=== PATIENT | male | born 1980 | race Caucasian/White ===

== ENCOUNTER 2021-11-10 23:19 | Inpatient (IN) | payer OTHER ==
[~2021-11-10] VITALS: Ht 170.2 cm; Wt 71.4 kg
[2021-11-11] MEDS ORDERED: IOHEXOL 350 MG/ML 100ML IJ ONE (00:13)
[2021-11-11 01:16] LABS: Basophils # (auto) 0.1 10 ^3/uL (0-0.2); Mean Corpuscular Hemoglobin 28.7 pg (28.0-32.0); Monocytes # (auto) 0.2 10 ^3/uL (0-1.3)
[2021-11-11 01:18] LABS: Basophils % (auto) 0.6 % (0.0-2.0); Eosinophils # (auto) 0.2 10 ^3/uL (0-0.8); Eosinophils % (auto) 1.8 % (0.0-7.0); Hematocrit 34.2 % (41.0-53.0); Hemoglobin 11.6 g/dL (13.5-17.5); Lymphocytes % (auto) 23.5 % (10.0-50.0); Mean Corpuscular Hgb Conc. 33.9 g/dL (32.0-36.0); Mean Corpuscular Volume 84.6 fL (80.0-100.0); Monocytes % (auto) 2.6 % (0.0-12.0); Neutrophils # (auto) 6.2 10 ^3/uL (1.6-8.6); Neutrophils % (auto) 71.5 % (37.0-80.0); Red Blood Cells 4.04 10^6/uL (4.5-5.90); Red Cell Distribution Width 14.5 % (11.8-14.3); White Blood Cell 8.6 10^3/uL (4.4-10.8)
[2021-11-11 01:35] LABS: INR 1.34 (0.9-1.15); Partial Thromboplastin Time 28.5 sec (23.6-33.0)
[2021-11-11 01:37] LABS: Albumin 3.4 g/dL (3.4-5.0); BUN/Creatinine Ratio 15.4; Calcium 8.8 mg/dL (8.5-10.1); Magnesium 2.6 mg/dL (1.6-2.6); Potassium 4.6 mmol/L (3.5-5.1)
[2021-11-11 01:40] LABS: Bilirubin, Total 0.4 mg/dL (0.2-1.0); Total Protein 6.7 g/dL (6.4-8.2)
[2021-11-11] MEDS ORDERED: ASPirin 81 mg TAB PO ONE (02:00)
[2021-11-11] MEDS ORDERED: ENOXAPARIN SOD 100 MG/1 ML SYRINGE SC ONE (03:00)
[2021-11-11] MEDS ORDERED: KETOROLAC TROMETH 30 MG/ML 1ML VIAL IM ONE (04:15)
[2021-11-11] MEDS ORDERED: ONDANSETRON HCL 4 MG/2 ML VIAL IV PRN (05:15)
[2021-11-11] MEDS ORDERED: ACETAMINOPHEN 325 MG TAB PO PRN (05:15)
[2021-11-11] MEDS ORDERED: FUROSEMIDE 40 MG/4 ML VIAL IV ONE (05:15)
[2021-11-11] MEDS ORDERED: DOCUSATE SOD 100 MG CAP PO PRN (05:15)
[2021-11-11] MEDS ORDERED: DEXTROSE (50%) 50ML SYRG IV PRN (05:15)
[2021-11-11] MEDS ORDERED: HYDROcodone-ACET 5/325MG TAB PO PRN (05:15)
[2021-11-11 05:52] LABS: Basophils # (auto) 0.1 10 ^3/uL (0-0.2); Basophils % (auto) 0.7 % (0.0-2.0); Eosinophils # (auto) 0.2 10 ^3/uL (0-0.8); Hematocrit 33.2 % (41.0-53.0); Lymphocytes # (auto) 2.4 10 ^3/uL (0.4-5.4); Lymphocytes % (auto) 26.2 % (10.0-50.0); Mean Corpuscular Volume 84.7 fL (80.0-100.0); Monocytes # (auto) 0.2 10 ^3/uL (0-1.3); Monocytes % (auto) 2.3 % (0.0-12.0); Neutrophils # (auto) 6.3 10 ^3/uL (1.6-8.6); Neutrophils % (auto) 68.8 % (37.0-80.0); Red Blood Cells 3.92 10^6/uL (4.5-5.90); Red Cell Distribution Width 14.6 % (11.8-14.3); White Blood Cell 9.1 10^3/uL (4.4-10.8)
[2021-11-11] MEDS ORDERED: MORPHINE SULFATE INJ 2 MG/ml SYRG IV PRN (06:00)
[2021-11-11] MEDS ORDERED: NITROGLYCERIN 0.4 MG SL TAB SL PRN (06:00)
[2021-11-11 06:07] LABS: Potassium 4.1 mmol/L (3.5-5.1)
[2021-11-11] MEDS: SODIUM CHLOR 0.9% PF (SALINE LOCK) 10ML VIAL/SYR IV SCH ×3 (06:22→21:48)
[2021-11-11 06:27] LABS: Albumin 3.1 g/dL (3.4-5.0); BUN/Creatinine Ratio 17.3; Bilirubin, Total 0.5 mg/dL (0.2-1.0); Calcium 8.7 mg/dL (8.5-10.1); Total Protein 6.8 g/dL (6.4-8.2)
[2021-11-11] MEDS: InsuLIN REG 1unit/0.01ml Soln (100units/ml) SC SCH ×2 (08:00→11:58)
[2021-11-11] MEDS: ACCU-CHEK COMFORT CURVE STRIP VI SCH ×2 (08:03→11:58)
[2021-11-11 11:13] VITALS: BP 113/74
[2021-11-11] MEDS ORDERED: CEPH-322 PO (11:35)
[2021-11-11] MEDS: ASPirin 81 mg TAB PO SCH (11:56)
[2021-11-11] MEDS: FUROSEMIDE 40 MG/4 ML VIAL IV SCH (11:56)
[2021-11-11] MEDS: HEPARIN SODIUM (PORCINE) 5000 UNITS/ML 1ML VIAL SC SCH ×2 (11:58→21:52)
[2021-11-11 13:00] VITALS: BP 113/74
[2021-11-11 17:00] VITALS: BP 129/92
[2021-11-11 17:26] LABS: Urine Bacteria NONE SEEN /hpf (None Seen); Urine Blood Negative /uL (Negative); Urine WBC 3 /hpf (0 - 3)
[2021-11-11 17:53] LABS: Alcohol, Urine < 3.0 mg/dL (0-10); Barbiturate Scree,Urine NEGATIVE (NEGATIVE); Benzodiazephine Screen, Urine NEGATIVE (NEGATIVE); Cannabinoid Screen, Urine NEGATIVE (NEGATIVE); Cocaine Screen, Urine NEGATIVE (NEGATIVE); Opiate Scree,Urine NEGATIVE (NEGATIVE)
[2021-11-11 18:06] LABS: Amphetamine Screen, Urine POSITIVE (NEGATIVE); Phencyclidine Screen, Urine NEGATIVE (NEGATIVE)
[2021-11-11] MEDS: CARVEDILOL 3.125 MG TAB PO SCH (21:49)
[2021-11-11] MEDS: ATORVASTATIN 20 MG TAB PO SCH (21:50)
[2021-11-11 22:00] VITALS: BP 131/98
[2021-11-12 04:57] VITALS: BP 131/99
[2021-11-12] MEDS: SODIUM CHLOR 0.9% PF (SALINE LOCK) 10ML VIAL/SYR IV SCH ×3 (06:01→22:29)
[2021-11-12 07:53] LABS: Basophils # (auto) 0.1 10 ^3/uL (0-0.2); Eosinophils # (auto) 0.2 10 ^3/uL (0-0.8); Lymphocytes # (auto) 1.9 10 ^3/uL (0.4-5.4); Neutrophils # (auto) 6.7 10 ^3/uL (1.6-8.6); White Blood Cell 9.1 10^3/uL (4.4-10.8)
[2021-11-12 07:56] LABS: Basophils % (auto) 0.9 % (0.0-2.0); Eosinophils % (auto) 1.7 % (0.0-7.0); Hematocrit 35.2 % (41.0-53.0); Hemoglobin 12.2 g/dL (13.5-17.5); Mean Corpuscular Hemoglobin 29.2 pg (28.0-32.0); Mean Corpuscular Hgb Conc. 34.7 g/dL (32.0-36.0); Mean Corpuscular Volume 84.1 fL (80.0-100.0); Monocytes # (auto) 0.2 10 ^3/uL (0-1.3); Monocytes % (auto) 2.7 % (0.0-12.0); Neutrophils % (auto) 73.7 % (37.0-80.0); Nucleated Red Blood Cells % 0.1 %; Red Blood Cells 4.19 10^6/uL (4.5-5.90); Red Cell Distribution Width 14.3 % (11.8-14.3)
[2021-11-12 08:00] VITALS: BP 121/84
[2021-11-12 08:09] LABS: Albumin 3.2 g/dL (3.4-5.0); Calcium 8.5 mg/dL (8.5-10.1)
[2021-11-12 08:12] LABS: BUN/Creatinine Ratio 22.4; Bilirubin, Total 0.7 mg/dL (0.2-1.0)
[2021-11-12 09:00] VITALS: BP 121/84
[2021-11-12] MEDS: ASPirin 81 mg TAB PO SCH (09:51)
[2021-11-12] MEDS: FUROSEMIDE 40 MG/4 ML VIAL IV SCH (09:51)
[2021-11-12] MEDS: CARVEDILOL 3.125 MG TAB PO SCH ×2 (09:52→22:30)
[2021-11-12] MEDS: LISINOPRIL 20 MG TAB PO SCH (09:53)
[2021-11-12] MEDS: HEPARIN SODIUM (PORCINE) 5000 UNITS/ML 1ML VIAL SC SCH ×2 (10:00→22:18)
[2021-11-12 13:00] VITALS: BP 116/84
[2021-11-12 17:00] VITALS: BP 96/67
[2021-11-12 22:00] VITALS: BP 104/69
[2021-11-12] MEDS: ATORVASTATIN 20 MG TAB PO SCH (22:30)
[2021-11-13 05:00] VITALS: BP 103/74
[2021-11-13] MEDS: SODIUM CHLOR 0.9% PF (SALINE LOCK) 10ML VIAL/SYR IV SCH ×3 (05:56→21:35)
[2021-11-13 08:00] VITALS: BP 113/73
[2021-11-13] MEDS: ASPirin 81 mg TAB PO SCH (08:26)
[2021-11-13] MEDS: CARVEDILOL 3.125 MG TAB PO SCH ×2 (08:27→21:36)
[2021-11-13] MEDS: FUROSEMIDE 40 MG/4 ML VIAL IV SCH (08:27)
[2021-11-13] MEDS: LISINOPRIL 20 MG TAB PO SCH (08:27)
[2021-11-13] MEDS: HEPARIN SODIUM (PORCINE) 5000 UNITS/ML 1ML VIAL SC SCH ×2 (08:28→21:35)
[2021-11-13 09:00] VITALS: BP 113/78
[2021-11-13 13:00] VITALS: BP 99/64
[2021-11-13 17:00] VITALS: BP 100/68
[2021-11-13 22:00] VITALS: BP 99/65
[2021-11-14 05:00] VITALS: BP 100/57
[2021-11-14] MEDS: SODIUM CHLOR 0.9% PF (SALINE LOCK) 10ML VIAL/SYR IV SCH ×2 (06:01→14:00)
[2021-11-14 07:40] LABS: BUN/Creatinine Ratio 23.3; Calcium 8.5 mg/dL (8.5-10.1); Magnesium 2.8 mg/dL (1.6-2.6); Potassium 4.3 mmol/L (3.5-5.1)
[2021-11-14 09:00] VITALS: BP 116/78
[2021-11-14] MEDS: HEPARIN SODIUM (PORCINE) 5000 UNITS/ML 1ML VIAL SC SCH (09:08)
[2021-11-14] MEDS: ASPirin 81 mg TAB PO SCH (09:09)
[2021-11-14] MEDS: FUROSEMIDE 40 MG/4 ML VIAL IV SCH (09:09)
[2021-11-14] MEDS: CARVEDILOL 3.125 MG TAB PO SCH (09:10)
[2021-11-14] MEDS: LISINOPRIL 20 MG TAB PO SCH (09:10)
[2021-11-14 13:00] VITALS: BP 97/69
[2021-11-14] MEDS ORDERED: CAR3125T PO (15:26)
[2021-11-14] MEDS ORDERED: LISI20TA28 PO (15:26)
[2021-11-14] MEDS ORDERED: FURO1TAB31 PO (15:26)
[2021-11-14] MEDS ORDERED: CHOL20007 PO (15:26)
[2021-11-14 17:00] VITALS: BP 96/64
[2021-11-14 19:28] VITALS: BP 110/78
== END 2021-11-14 20:15 | disposition home or self-care (01) | DRG 205 ==
LOC: ER 23:19 → TELE 11-11 05:54 → TELE-WESTW 11-11 10:01
PROVIDERS: ADMIT Nurse Practitioner Family; ATTEND Internal Medicine
DX: I42.7 Cardiomyopathy due to drug and external agent (principal); N17.0 Acute kidney failure with tubular necrosis; I21.A1 Myocardial infarction type 2; I50.23 Acute on chronic systolic (congestive) heart failure; D75.839 Thrombocytosis, unspecified; I16.0 Hypertensive urgency; E55.9 Vitamin D deficiency, unspecified; R79.89 Other specified abnormal findings of blood chemistry; F15.90 Other stimulant use, unspecified, uncomplicated; Z20.822 Contact with and (suspected) exposure to COVID-19; I11.0 Hypertensive heart disease with heart failure; J98.11 Atelectasis; Z87.442 Personal history of urinary calculi; Z91.19 Patient's noncompliance with other medical treatment and regimen; Z71.51 Drug abuse counseling and surveillance of drug abuser; T43.625A Adverse effect of amphetamines, initial encounter; Y92.89 Other specified places as the place of occurrence of the external cause
CPT/HCPCS: 36415; 70450; 71045; 71275; 76604; 80048; 80053; 80061; 80307; 81001; 82306; 82962; 83036; 83735; 83880; 84443; 84484; 85025; 85610; 85730; 87081; 93005; 93306; 96372; 96374; 99291; G0378

== ENCOUNTER 2021-11-25 23:18 | Emergency (ER) | payer OTHER ==
[~2021-11-25] VITALS: Ht 170.2 cm; Wt 68.0 kg
[2021-11-25 23:18] VITALS: BP 133/84
[~2021-11-25 23:18] MED LIST: CAR3125T PO; CEPH-322 PO; CHOL20007 PO; FURO1TAB31 PO; LISI20TA28 PO
[2021-11-26 01:52] LABS: Basophils # (auto) 0.1 10 ^3/uL (0-0.2); Basophils % (auto) 0.7 % (0.0-2.0); Eosinophils # (auto) 0.3 10 ^3/uL (0-0.8); Eosinophils % (auto) 4.1 % (0.0-7.0); Hematocrit 37.4 % (41.0-53.0); Hemoglobin 12.8 g/dL (13.5-17.5); Lymphocytes # (auto) 2.2 10 ^3/uL (0.4-5.4); Lymphocytes % (auto) 26.6 % (10.0-50.0); Mean Corpuscular Hemoglobin 28.7 pg (28.0-32.0); Mean Corpuscular Hgb Conc. 34.1 g/dL (32.0-36.0); Mean Corpuscular Volume 84.3 fL (80.0-100.0); Monocytes # (auto) 0.7 10 ^3/uL (0-1.3); Monocytes % (auto) 7.9 % (0.0-12.0); Neutrophils % (auto) 60.7 % (37.0-80.0); Nucleated Red Blood Cells % 0.1 %; Red Blood Cells 4.44 10^6/uL (4.5-5.90); Red Cell Distribution Width 15.3 % (11.8-14.3); White Blood Cell 8.3 10^3/uL (4.4-10.8)
[2021-11-26 02:07] LABS: Calcium 9.2 mg/dL (8.5-10.1); Potassium 4.1 mmol/L (3.5-5.1)
[2021-11-26 02:11] LABS: Albumin 3.8 g/dL (3.4-5.0); BUN/Creatinine Ratio 27.2; Magnesium 2.7 mg/dL (1.6-2.6)
[2021-11-26 02:14] LABS: Bilirubin, Total 0.2 mg/dL (0.2-1.0); Total Protein 7.4 g/dL (6.4-8.2)
== END 2021-11-26 05:40 | disposition home or self-care (01) ==
LOC: ER 23:18
DX: R07.89 Other chest pain (principal)
CPT/HCPCS: 36415; 80053; 83735; 83880; 84484; 85025; 93005

== ENCOUNTER 2022-07-15 20:33 | Emergency (ER) | payer OTHER ==
[~2022-07-15] VITALS: Ht 170.2 cm; Wt 84.0 kg
[~2022-07-15 20:33] MED LIST changes: -CAR3125T PO; -CHOL20007 PO; -LISI20TA28 PO
[2022-07-15 20:44] VITALS: BP 148/89
[2022-07-15 21:37] LABS: Basophils # (auto) 0 10 ^3/uL (0-0.2); Basophils % (auto) 0.6 % (0.0-2.0); Eosinophils # (auto) 0.1 10 ^3/uL (0-0.8); Eosinophils % (auto) 1.9 % (0.0-7.0); Hematocrit 39.6 % (41.0-53.0); Hemoglobin 13.5 g/dL (13.5-17.5); Lymphocytes # (auto) 2.4 10 ^3/uL (0.4-5.4); Lymphocytes % (auto) 38.5 % (10.0-50.0); Mean Corpuscular Hemoglobin 29.5 pg (28.0-32.0); Mean Corpuscular Hgb Conc. 34.1 g/dL (32.0-36.0); Mean Corpuscular Volume 86.5 fL (80.0-100.0); Monocytes # (auto) 0.4 10 ^3/uL (0-1.3); Monocytes % (auto) 7.3 % (0.0-12.0); Neutrophils # (auto) 3.2 10 ^3/uL (1.6-8.6); Neutrophils % (auto) 51.7 % (37.0-80.0); Nucleated Red Blood Cells % 0.1 %; Red Blood Cells 4.58 10^6/uL (4.5-5.90); Red Cell Distribution Width 14.5 % (11.8-14.3); White Blood Cell 6.1 10^3/uL (4.4-10.8)
[2022-07-15 21:57] LABS: Albumin 4.3 g/dL (3.4-5.0); Calcium 9.9 mg/dL (8.5-10.1); Potassium 4.3 mmol/L (3.5-5.1)
[2022-07-15 21:59] LABS: BUN/Creatinine Ratio 21.2
[2022-07-15 22:15] LABS: Bilirubin, Total 0.3 mg/dL (0.2-1.0); Total Protein 7.4 g/dL (6.4-8.2)
== END 2022-07-16 02:04 | disposition home or self-care (01) ==
LOC: ER 20:34
DX: R07.89 Other chest pain (principal); I11.0 Hypertensive heart disease with heart failure; I50.9 Heart failure, unspecified; I25.2 Old myocardial infarction; E11.9 Type 2 diabetes mellitus without complications; Z90.49 Acquired absence of other specified parts of digestive tract; Z79.899 Other long term (current) drug therapy
CPT/HCPCS: 36415; 71045; 80053; 83880; 84484; 85025; 93005

== ENCOUNTER 2025-04-28 23:35 | Emergency (ER) | payer MEDICAID, OTHER ==
[~2025-04-28] VITALS: Ht 170.2 cm; Wt 66.7 kg
[~2025-04-28 23:35] MED LIST changes: -CEPH-322 PO; +CEPH250C PO
[2025-04-28 23:37] VITALS: BP 121/93; RESP 18; TEMP 98.4; O2SAT 96
[2025-04-28 23:54] VITALS: PULSE 107
[2025-04-29 01:44] LABS: Hematocrit 40.8 % (41.0-53.0); Hemoglobin 13.9 g/dL (13.5-17.5); Mean Corpuscular Hemoglobin 29.6 pg (28.0-32.0); Mean Corpuscular Volume 87.0 fL (80.0-100.0); Nucleated Red Blood Cells % 0.0 %
[2025-04-29 01:53] LABS: Chloride 104 mmol/L (98-107); Potassium 4.9 mmol/L (3.5-5.1); Sodium 139 mmol/L (136-145)
[2025-04-29 01:54] LABS: Anion Gap 8 (5-15); Calcium 9.3 mg/dL (8.7-10.4); Carbon Dioxide 27 mmol/L (20-31)
[2025-04-29 01:59] LABS: BUN/Creatinine Ratio 17.4 (10.0-20.0); Blood Urea Nitrogen 21 mg/dL (9-23); Glucose 94 mg/dL (74-106)
--- NOTE | 2025-04-29 13:22 | ECG ---
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
[2025-04-29] MEDS ORDERED: IPRATROPIUM BROM 0.5 MG/2.5ML INH SOL ONE (14:23)
[2025-04-29] MEDS ORDERED: ALBUTEROL SULF 2.5 MG/0.5ML(0.5%) NEB SOLN ONE (14:23)
== END 2025-04-29 01:58 | disposition left against medical advice (07) ==
LOC: ER 23:37
DX: R07.89 Other chest pain (principal); Z79.899 Other long term (current) drug therapy
CPT/HCPCS: 36415; 80048; 83880; 84484; 85025; 93005

== ENCOUNTER 2025-04-29 08:03 | Inpatient (IN) | payer MEDICAID ==
[2025-04-29] VITALS (13 sets, daily range): BP systolic 120–131; BP diastolic 86–101; PULSE 97–107; RESP 16–23; TEMP 98.3–98.6; O2SAT 96–100
[~2025-04-29] VITALS: Ht 170.2 cm; Wt 81.1 kg
--- NOTE | 2025-04-29 09:07 | ED.PDOC ---
SOB-HPI HPI Comments This is a 44 year old male presenting to the ED with chief complaint of SOB. Patient reports that he has been experiencing SOB with associated chest pain for the past 2 weeks. Patient relays that he has history of CHF, but is not on any medication at this time. Patient denies any N/V, dizziness, fever, chills, headache, cough, or hemoptysis. Chief Complaint: Shortness of Breath Time Seen by MD: 09:05 Primary Care Provider: Erasto Delaney notes: Nurses Notes, Medications, Allergies Information Source: Patient Mode of Arrival: Ambulatory Severity: Moderate Timing: Weeks Duration: Since onset Context: At Rest PE Risk Factors: None History of: CHF Prehospital treatment: None Modifying Factors: Nothing Associated Signs and Symptoms: Chest Pain Quality: Tightness Radiation: No Radiation Location: Substernal Past Medical History PAST MEDICAL HISTORY: CHF, DM, HTN, Kidney Stones, [place] Surgical History: Cholecystectomy Family History Family History: Reviewed,noncontributory to illness Social History Smoker: Non-Smoker Alcohol: Denies ETOH Use Drugs: Denies Drug Use Lives In: Home Constitutional: denies: chills, diaphoresis, fatigue, fever, malaise, sweats, weakness, others EENTM: denies: blurred vision, double vision, ear bleeding, ear discharge, ear drainage, ear pain, ear ringing, eye pain, eye redness, hearing loss, mouth pain, mouth swelling, nasal discharge, nose bleeding, nose congestion, nose pain, photophobia, tearing, throat pain, throat swelling, voice changes, others Respiratory: reports: shortness of breath; denies: cough, hemoptysis, orthopnea, SOB at rest, SOB with excertion, stridor, wheezing, others Cardiovascular: reports: chest pain; denies: dizzy spells, diaphoresis, Dyspnea on exertion, edema, irregular heart beat, left arm pain, lightheadedness, palpitations, PND, syncope, others Gastrointestinal: denies: abdomen distended, abdominal pain, blood streaked bowels, constipated, diarrhea, dysphagia, difficulty swallowing, hematemesis, melena, nausea, poor appetite, poor fluid intake, rectal bleeding, rectal pain, vomiting, others Genitourinary: denies: burning, dysuria, flank pain, frequency, hematuria, i ncontinence, penile discharge, penile sore, pain, testicle pain, testicle swelling, urgency, others Neurological: denies: dizziness, fainting, headache, left sided numbness, left sided weakness, numbness, paresthesia, pre-existing deficit, right sided numbness, right sided weakness, seizure, speech problems, tingling, tremors, weakness, others Musculoskeletal: denies: back pain, gout, joint pain, joint swelling, muscle pain, muscle stiffness, neck pain, others Integumetry: denies: bruises, change in color, change in hair/nails, dryness, laceration, lesions, lumps, rash, wounds, others Allergic/Immunocompromised: denies: Difficulty Healing, Frequent Infections, Hives, Itching, others Hematologic/Lymphatic: denies: anemia, blood clots, easy bleeding, easy bruising, swollen glands, others Endocrine: denies: excessive hunger, excessive sweating, excessive thirst, excessive urination, flushing, intolerance to cold, intolerance to heat, unexplained weight gain, unexplained weight loss, others Psychiatric: denies: anxiety, bipolar disorder, depression, hopeless, panic disorder, schizophrenia, sleepless, suicidal, others All Other Systems: Reviewed and Negative Physical Exam General Appearance: No Apparent Distress, Normal HEENT: Normal ENT Inspection, Pharynx Normal, TMs Normal Neck: Full Range of Motion, Non-Tender, Normal, Normal Inspection Respiratory: Chest Non-Tender, Lungs Clear, No Accessory Muscle Use, No Respiratory Distress, Normal Breath Sounds Cardiovascular: No Edema, No JVD, No Murmur, No Gallop, Normal Peripheral Pulses, Regular Rate/Rhythm Breast Exam: Deferred Gastrointestinal: No Organomegaly, Non Tender, No Pulsatile Mass, Normal Bowel Sounds, Soft Genitalia: Deferred Pelvic: Deferred Rectal: Deferred Extremities: No calf tenderness, Normal capillary refill, Normal inspection, Normal range of motion, Non-tender, No pedal edema Musculoskeletal : Apperance: Normal Neurologic: Alert, utility driver II-XII nml as Tested, No Motor Deficits, Normal Affect, Normal Mood, No Sensory Deficits Cerebellar Function: Normal Reflexes: Normal Skin: Dry, Normal Color, Warm Lymphatic: No Adenopathy Was a procedure done? Was a procedure done?: No Differential Dx Differential Diagnosis: CHF X-Ray, Labs, Meds, VS Vital Signs Date Time Temp Pulse Resp B/P (MAP) Pulse Ox O2 Delivery O2 Flow Rate FiO2 04/29/25 10:20 97 04/29/25 10:20 97 20 131/95 (107) 98 04/29/25 08:12 111 04/29/25 08:06 98.3 106 18 142/108 98 98.3 Lab Test 04/29/25 10:16 04/29/25 09:13 Range/Units Troponin I High Sensitivity 37 42 </=54 ng/L White Blood Count 8.2 4.4-10.8 10^3/uL Red Blood Count 4.83 4.5-5.90 10^6/uL Hemoglobin 14.0 13.5-17.5 g/dL Hematocrit 42.0 41.0-53.0 % Mean Corpuscular Volume 86.9 80.0-100.0 fL Mean Corpuscular Hemoglobin 29.0 28.0-32.0 pg Mean Corpuscular Hemoglobin Concent 33.3 32.0-36.0 g/dL Red Cell Distribution Width 14.9 H 11.8-14.3 % Platelet Count 299 140-450 10^3/uL Mean Platelet Volume 8.2 6.9-10.8 fL Neutrophils (%) (Auto) 75.6 37.0-80.0 % Lymphocytes (%) (Auto) 15.9 10.0-50.0 % Monocytes (%) (Auto) 2.8 0.0-12.0 % Eosinophils (%) (Auto) 4.6 0.0-7.0 % Basophils (%) (Auto) 1.1 0.0-2.0 % Neutrophils # (Auto) 6.2 1.6-8.6 10 ^3/uL Lymphocytes # (Auto) 1.3 0.4-5.4 10 ^3/uL Monocytes # (Auto) 0.2 0-1.3 10 ^3/uL Eosinophils # (Auto) 0.4 0-0.8 10 ^3/uL Basophils # (Auto) 0.1 0-0.2 10 ^3/uL Nucleated Red Blood Cells 0.1 % Sodium Level 141 136-145 mmol/L Potassium Level 5.4 H 3.5-5.1 mmol/L Chloride Level 105 98-107 mmol/L Carbon Dioxide Level 27 20-31 mmol/L Anion Gap 9 5-15 Blood Urea Nitrogen 21 9-23 mg/dL Creatinine 1.30 0.700-1.30 mg/dL Glomerular Filtration Rate Calc 69 >90 mL/min BUN/Creatinine Ratio 16.2 10.0-20.0 Serum Glucose 107 H 74-106 mg/dL Calcium Level 9.3 8.7-10.4 mg/dL B-Type Natriuretic Peptide 953.96 0-100 pg/mL Time of 1ST Reevaluation: 10:04 Reevaluation 1ST: Unchanged Patient Education/Counseling: Diagnosis, Treatment Family Education/Counseling: No Family Present SEPSIS Sepsis Screen Date sepsis recognized/suspect: Apr 29, 2025 Time Sepsis recognized/suspect: 08 Recent Procedure: No On Antibiotic Therapy: No Respiratory Rate >20: No Heart Rate >90: Yes Temp<36 C (96.8 F) or >38.3 C: No SBP <90 or MAP <65 mmHG: No New Acute Mental Status Change: No Is the patient on CPAP, BIPAP,: No Physician Orders Electrocardigram (04/29/25 08:19) Urinalysis (04/29/25 08:59) Chest Portable (04/29/25 08:59) Troponin-I Hs (04/29/25 11:59) Vital Signs Date Time Temp Pulse Resp B/P (MAP) Pulse Ox O2 Delivery O2 Flow Rate FiO2 04/29/25 10:20 97 04/29/25 10:20 97 20 131/95 (107) 98 04/29/25 08:12 111 04/29/25 08:06 98.3 106 18 142/108 98 98.3 Laboratory Tests Test 04/29/25 09:13 White Blood Count 8.2 10^3/uL (4.4-10.8) Departure 1 Departure Time of Disposition: 11:38 (Patient presented with chest pain that was concerning for possible STEMI, ACS, PE, Pneumonia, Muscle Strain, COPD, Dissection. Data: 1. I ordered and reviewed the result of at least 3 labs including a CBC, BMP, and Troponin. 2. I independently interpreted the following tests: EKG which shows sinus arrhythmia and Chest X-ray which shows pulmonary vascular congestion.Risk:This patient has a high risk of morbidity due to further diagnostic testing or treatment and may suffer from an acute cardiac or respiratory disorder. Workup reveals concern for ACS _ and patient should be admitted for further workup and possible expert consultation. ) Impression: Primary Impression: Acute chest pain Additional Impressions: Acute dyspnea Heart failure Qualified Codes: I50.21 - Acute systolic (congestive) heart failure Disposition: ADMITTED INPATIENT Admit to: Tele Condition: Guarded Critical Care Note Critical Care Time?: Yes Critical care comment: Acute chest pain Authorized and Performed by: Meghna Rasmussen MD Total critical care time: Approximately 37 minutes Due to a high probability of clinically significant, life threatening deterioration, the patient required my highest level of preparedness to intervene emergently and I personally spent this critical care time directly and personally managing the patient. This critical care time included obtaining a history; examining the patient; pulse oximetry; ordering and review of studies; arranging urgent treatment with development of a management plan; evaluation of patient's response to treatment; frequent reassessment; and, discussions with other providers. This critical care time was performed to assess and manage the high probability of imminent, life-threatening deterioration that could result in multi-organ failure. It was exclusive of separately billable procedures and treating other patients and teaching time. Please see my other sections and the rest of the note for further information on patient assessment and treatment. Stability Stability form required: No Heart Score Heart Score: Heart Score Response (Comments) Value History Highly Suspicious 2 EKG Normal 0 Age <45 0 Risk Factors >3 or Hx ASHD 2 Troponin 1-2 x's Normal limit 1 Total 5 I personally scribed for MEGHNA RASMUSSEN MD ([email or web address]) on 04/29/25 at 09:07. Electronically submitted by Alex Cee ([email or web address]). MEGHNA RASMUSSEN MD Apr 29, 2025 09:07
--- NOTE | 2025-04-29 09:29 | DVH ---
INDICATION: sob TECHNIQUE: Frontal view of the chest. COMPARISON: CHEST XRAY 1 VIEW on DOS: 07/15/22, CXR1 on DOS: 07/15/22, CHEST PORTABLE on DOS: 01/26/22, CXRP on DOS: 01/26/22, CHSTU on DOS: 11/13/21 FINDINGS: . The heart and mediastinal contours are grossly unremarkable. There is no evidence of pleural disea se. The lungs are clear. The bony structures of the chest are intact without fracture. IMPRESSION: 1. No evidence of acute disease.
[2025-04-29 09:31] LABS: Hematocrit 42.0 % (41.0-53.0); Hemoglobin 14.0 g/dL (13.5-17.5); Mean Corpuscular Hemoglobin 29.0 pg (28.0-32.0); Mean Corpuscular Volume 86.9 fL (80.0-100.0); Nucleated Red Blood Cells % 0.1 %
[2025-04-29 09:40] LABS: Chloride 105 mmol/L (98-107); Sodium 141 mmol/L (136-145)
[2025-04-29 09:41] LABS: Anion Gap 9 (5-15); Calcium 9.3 mg/dL (8.7-10.4); Carbon Dioxide 27 mmol/L (20-31); Potassium 5.4 mmol/L (3.5-5.1)
[2025-04-29 09:46] LABS: BUN/Creatinine Ratio 16.2 (10.0-20.0); Blood Urea Nitrogen 21 mg/dL (9-23)
[2025-04-29 09:47] LABS: Glucose 107 mg/dL (74-106)
[2025-04-29] MEDS ORDERED: MORPHINE SULFATE 4 MG/ML SYR/VIAL IV PRN (13:15)
[2025-04-29] MEDS ORDERED: NITROGLYCERIN 0.4 MG SL TAB SL PRN ×2 (13:15)
[2025-04-29] MEDS ORDERED: ONDANSETRON HCL 4 MG/2 ML VIAL IV PRN (13:15)
[2025-04-29] MEDS ORDERED: MORPHINE SULFATE INJ 2 MG/ml SYRG IV PRN (13:15)
[2025-04-29] MEDS ORDERED: ACETAMINOPHEN 325 MG TAB PO PRN (13:15)
[2025-04-29] MEDS ORDERED: DEXTROSE (50%) 50ML SYRG IV PRN (13:15)
[2025-04-29] MEDS: SODIUM ZIRCONIUM CYCL 10 GM PAK PO ONE (16:04)
[2025-04-29] MEDS: ACCU-CHEK COMFORT CURVE STRIP VI SCH (16:56)
[2025-04-29] MEDS: InsuLIN REG 1unit/0.01ml Soln (100units/ml) SC SCH (16:58)
[2025-04-29] MEDS: IPRATROPIUM BROM 0.5 MG/2.5ML INH SOL NEB SCH (18:00)
[2025-04-29] MEDS: ALBUTEROL SULF 2.5 MG/0.5ML(0.5%) NEB SOLN NEB SCH (18:00)
[2025-04-29] MEDS: FUROSEMIDE 40 MG/4 ML VIAL IV ONE (18:12)
[2025-04-29 21:04] LABS: Urine Protein, UAD TRACE (Negative)
[2025-04-29] MEDS: ATORVASTATIN 20 MG TAB PO SCH (21:35)
[2025-04-29 22:58] LABS: Barbiturate Scree,Urine NEGATIVE (NEGATIVE); Opiate Scree,Urine NEGATIVE (NEGATIVE); Phencyclidine Screen, Urine NEGATIVE (NEGATIVE)
[2025-04-29 22:59] LABS: Amphetamine Screen, Urine NEGATIVE (NEGATIVE); Benzodiazephine Screen, Urine NEGATIVE (NEGATIVE); Cannabinoid Screen, Urine POSITIVE (NEGATIVE); Cocaine Screen, Urine NEGATIVE (NEGATIVE)
[2025-04-30] VITALS (19 sets, daily range): BP systolic 105–122; BP diastolic 77–94; PULSE 85–109; RESP 16–22; TEMP 97.9–98.7; O2SAT 91–100
[2025-04-30 07:03] LABS: Hematocrit 37.6 % (41.0-53.0); Hemoglobin 13.0 g/dL (13.5-17.5); Mean Corpuscular Hemoglobin 29.6 pg (28.0-32.0); Mean Corpuscular Volume 85.7 fL (80.0-100.0); Nucleated Red Blood Cells % 0.2 %
[2025-04-30 07:13] LABS: Anion Gap 9 (5-15); Carbon Dioxide 25 mmol/L (20-31); Chloride 105 mmol/L (98-107); Potassium 4.2 mmol/L (3.5-5.1); Sodium 139 mmol/L (136-145)
[2025-04-30 07:14] LABS: Calcium 9.1 mg/dL (8.7-10.4)
[2025-04-30 07:18] LABS: Glucose 94 mg/dL (74-106)
[2025-04-30 07:19] LABS: BUN/Creatinine Ratio 23.1 (10.0-20.0); Magnesium 2.4 mg/dL (1.6-2.6)
[2025-04-30 07:38] LABS: Blood Urea Nitrogen 24 mg/dL (9-23)
[2025-04-30 08:10] LABS: Triglycerides 108 mg/dL (< 150)
[2025-04-30 08:12] LABS: Cholesterol 151 mg/dL (< 200); HDL Cholesterol 43 mg/dL (40-59)
[2025-04-30] MEDS: FUROSEMIDE 40 MG/4 ML VIAL IV SCH (08:48)
--- NOTE | 2025-04-30 11:13 | DVHHP2 ---
History of Present Illness Reason for Visit: Chest pain with shortness of breath History of Present Illness Arcenio Brink is a 44-year-old male with past medical history of C4-5 fusion, CHF, diabetes, hypertension, kidney stones, [place], and cholecystectomy who presents to the ED with chest pain shortness of breath x2 weeks. Patient reports that his chest pain is now 0/10. He reports that he has a cigarette tipper and sometimes he wears the mask and sometimes he does not. He also reports that he does not take any medications for his CHF. Patient seen eating outside of the [place]. Patient reports that he is short of breath just taking bites of food. Patient denies any recent trauma or injury, recent sick contacts, recent travels, recent ingestion of spoiled food, fever, chills, lightheadedness, weakness, dizziness, abdominal pain, nausea, vomiting, diarrhea, or urinary symptoms. Cardiovascular: CHF, HTN, [place] Endocrine: Diabetes Past Medical History Kidney stones Past Surgical History: Cholecystectomy, Other (C4-5 fusion) Family History: Hypertension, Other (Mom with hypertension) Smoke: No ALCOHOL: none Drugs: Marijuana Domestic Violence: Neg Review of Systems Respiratory: Shortness of breath Cardiovascular: Chest Pain Allergies: Coded Allergies: NO KNOWN ALLERGIES (Unverified , 11/11/21) Exam Vital Signs Vital Signs Date Time Temp Pulse Resp B/P (MAP) Pulse Ox O2 Delivery O2 Flow Rate FiO2 04/29/25 12:50 98.0 93 16 120/87 (98) 98 98.0 General Appearance: Alert, Oriented X3, Cooperative, No acute distress HEENT: Atraumatic, PERRLA, EOMI, Mucous membr. moist/pink Respiratory: Clear to auscultation, Normal air movement Cardiovascular: Normal S1, Normal S2 Abdominal: Normal bowel sounds, Soft Extremities: No clubbing, No cyanosis, No edema, Normal pulses Skin: No significant lesion Neuro: Normal gait, Normal speech, Strength at 5/5 X4 ext, Normal tone, Sensation intact Psych/Mental Status: Mental status NL, Mood NL Labs/Xrays Labs Test 04/29/25 12:19 04/29/25 09:13 Range/Units White Blood Count 8.2 4.4-10.8 10^3/uL Red Blood Count 4.83 4.5-5.90 10^6/uL Hemoglobin 14.0 13.5-17.5 g/dL Hematocrit 42.0 41.0-53.0 % Mean Corpuscular Volume 86.9 80.0-100.0 fL Mean Corpuscular Hemoglobin 29.0 28.0-32.0 pg Mean Corpuscular Hemoglobin Concent 33.3 32.0-36.0 g/dL Red Cell Distribution Width 14.9 H 11.8-14.3 % Platelet Count 299 140-450 10^3/uL Mean Platelet Volume 8.2 6.9-10.8 fL Neutrophils (%) (Auto) 75.6 37.0-80.0 % Lymphocytes (%) (Auto) 15.9 10.0-50.0 % Monocytes (%) (Auto) 2.8 0.0-12.0 % Eosinophils (%) (Auto) 4.6 0.0-7.0 % Basophils (%) (Auto) 1.1 0.0-2.0 % Neutrophils # (Auto) 6.2 1.6-8.6 10 ^3/uL Lymphocytes # (Auto) 1.3 0.4-5.4 10 ^3/uL Monocytes # (Auto) 0.2 0-1.3 10 ^3/uL Eosinophils # (Auto) 0.4 0-0.8 10 ^3/uL Basophils # (Auto) 0.1 0-0.2 10 ^3/uL Nucleated Red Blood Cells 0.1 % Sodium Level 141 136-145 mmol/L Potassium Level 5.4 H 3.5-5.1 mmol/L Chloride Level 105 98-107 mmol/L Carbon Dioxide Level 27 20-31 mmol/L Anion Gap 9 5-15 Blood Urea Nitrogen 21 9-23 mg/dL Creatinine 1.30 0.700-1.30 mg/dL Glomerular Filtration Rate Calc 69 >90 mL/min BUN/Creatinine Ratio 16.2 10.0-20.0 Serum Glucose 107 H 74-106 mg/dL Calcium Level 9.3 8.7-10.4 mg/dL B-Type Natriuretic Peptide 953.96 0-100 pg/mL INDICATION: sob TECHNIQUE: Frontal view of the chest. COMPARISON: CHEST XRAY 1 VIEW on DOS: 07/15/22, CXR1 on DOS: 07/15/22, CHEST PORTABLE on DOS: 01/26/22, CXRP on DOS: 01/26/22, CHSTU on DOS: 11/13/21 FINDINGS: . The heart and mediastinal contours are grossly unremarkable. There is no evidence of pleural disease. The lungs are clear. The bony structures of the chest are intact without fracture. IMPRESSION: 1. No evidence of acute disease. SEPSIS Sepsis Screen Date sepsis recognized/suspect: Apr 29, 2025 Time Sepsis recognized/suspect: 0808 Recent Procedure: No On Antibiotic Therapy: No Respiratory Rate >20: No Heart Rate >90: Yes Temp<36 C (96.8 F) or >38.3 C: No SBP <90 or MAP <65 mmHG: No New Acute Mental Status Change: No Is the patient on CPAP, BIPAP,: No Physician Orders Electrocardigram (04/29/25 08:19) Urinalysis (04/29/25 08:59) Chest Portable (04/29/25 08:59) Troponin-I Hs (04/29/25 11:59) Cardiac Diet-2gna,Lofat,Lochol (04/29/25 Lunch) Vital Signs Date Time Temp Pulse Resp B/P (MAP) Pulse Ox O2 Delivery O2 Flow Rate FiO2 04/29/25 12:50 98.0 93 16 120/87 (98) 98 98.0 04/29/25 10:20 97 04/29/25 10:20 97 20 131/95 (107) 98 04/29/25 08:12 111 04/29/25 08:06 98.3 106 18 142/108 98 98.3 Laboratory Tests Test 04/29/25 09:13 White Blood Count 8.2 10^3/uL (4.4-10.8) Assessment/Plan Assessment/Plan Assessment Chest pain Acute on chronic CHF exacerbation Hyperkalemia Marijuana use History of C4-5 fusion History of diabetes History of hypertension History of kidney stones History of [place] History of cholecystectomy Plan Admit To tele Aspirin + statin Antiemetics Pain management Diurese Strict I&Os Daily weight Lokelma UA Troponin noted Chest x-ray BNP noted EKG UA UDS D-dimer Duo nebs Echo ordered Free T4 Lipid panel TSH Hemoglobin A1c ISS and Accu-Cheks Diet Home medications reconciled DVT prophylaxis-SCDs PUD prophylaxis-PPIs Discussed plan of care with patient and nurse Counseled patient on cessation of marijuana use 11652 Behavior change smoking greater than 10 minutes about use of other options also gave option of nicotine patch [id number] Preventive counseling healthy eating habits, physical activity, and regular checkups Plan discussed with: Patient Date of Service: Apr 29, 2025 Billing Provider: BARBARA COLINDRES Common Visit Codes: 01424-[id number] INP/OBS CARE (HIGH) Secondary Visit Codes: 47416-[id number] COUNSELING IND BARBARA COLINDRES Apr 29, 2025 13:18
--- NOTE | 2025-04-30 15:03 | DVHPN2 ---
Progress Note Date Seen: Apr 30, 2025 Has the PT tested + for MRSA If YES, has PT been informed?: No Medical Necessity Reason Pt with a Central, PICC or Fol: No Subjective Patient reports: No new complaints Objective vital signs Vital Sign Date Time Temp Pulse Resp B/P (MAP) Pulse Ox O2 Delivery O2 Flow Rate FiO2 04/30/25 14:37 93 16 99 04/30/25 14:31 Room Air 0.0 04/30/25 14:31 21 04/30/25 12:39 98.5 118/89 (99) 98.5 Total Intake and Output 04/29/25 04/29/25 04/30/25 15:00 23:00 07:00 Intake Total 150 ml 440 ml Balance 150 ml 440 ml medications Current Medications Medications Dose Ordered Sig/Mell Route Start Time Stop Time Status Last Admin Dose Admin Furosemide 40 mg DAILY IV 04/30/25 10:00 04/30/25 08:48 40 MG Albuterol 2.5 mg Q4HWA NEB 04/29/25 14:00 04/30/25 14:31 2.5 MG Ipratropium Calvin 0.5 mg Q4HWA NEB 04/29/25 14:00 04/30/25 14:31 0.5 MG Aspirin 81 mg DAILY PO 04/30/25 10:00 04/30/25 08:45 81 MG Atorvastatin Calcium 40 mg HS PO 04/29/25 22:00 04/29/25 21:35 40 MG Morphine Sulfate 2 mg Q30MP PRN IV 04/29/25 13:15 Cancel Acetaminophen 650 mg Q6HP PRN PO 04/29/25 13:15 Nitroglycerin 0.4 mg Q5MINP PRN SL 04/29/25 13:15 Cancel Ondansetron HCl 4 mg Q4HP PRN IV 04/29/25 13:15 Nitroglycerin 0.4 mg Q5MINP PRN SL 04/29/25 13:15 Morphine Sulfate 2 mg Q30M PRN IV 04/29/25 13:15 Diagnostic Test (Pha) 1 strip ACHS 04/29/25 17:00 04/30/25 11:50 1 STRIP Insulin Human Regular ACHS SC 04/29/25 17:00 04/30/25 12:01 2 UNITS Dextrose 50 ml UD PRN IV 04/29/25 13:15 Examination General Appearance: Alert, Oriented X3, Cooperative, No acute distress HEENT: Atraumatic, PERRLA, EOMI, Mucous membr. moist/pink Respiratory: Clear to auscultation, Normal air movement Cardiovascular: Normal S1, Normal S2 Abdominal: Normal bowel sounds, Soft Extremities: Positive bilateral lower extremity edema. No cyanosis Skin: No significant lesion Neuro: Normal gait, Normal speech, Strength at 5/5 X4 ext, Normal tone, Sensation intact Psych/Mental Status: Mental status NL, Mood NL laboratory and microbiology Laboratory Tests 04/30/25 05:47 Test 04/30/25 05:47 Range/Units Serum Glucose 94 74-106 mg/dL Labs and/or images reviewed: Labs reviewed by me, Image(s) reviewed by me Problem List/Assessment/Plan Problem List/Assessment/Plan Acute on chronic CHF exacerbation Hyperkalemia Marijuana use History of C4-5 fusion History of diabetes History of hypertension History of kidney stones History of [place] History of cholecystectomy Plan Admit To tele Aspirin + statin Diurese 40kg iv Strict I&Os Goal K >4, Mg >2 Daily weight Lokelma D-dimer Duo nebs Echo ordered ISS and Accu-Cheks Diet Home medications reconciled DVT prophylaxis-SCDs PUD prophylaxis-PPIs Discussed plan of care with patient and nurse Plan discussed with: Patient Date of Service: Apr 30, 2025 Billing Provider: ANDREW FISHER MD Common Visit Codes: [id number]-QYJ/OBS SAME DATE (HIGH) ANDREW FISHER MD Apr 30, 2025 15:03
[2025-04-30] MEDS: HEPARIN SODIUM (PORCINE) 5000 UNITS/ML 1ML VIAL SC SCH (21:33)
[2025-05-01] VITALS (19 sets, daily range): BP systolic 106–120; BP diastolic 77–93; PULSE 90–110; RESP 15–20; TEMP 97.5–98.2; O2SAT 93–100
--- NOTE | 2025-05-01 03:53 | DVHSR ---
APPROVED REPORT EXAM: Two-dimensional and M-mode echocardiogram with Doppler and color Doppler. Blood Pressure: 109/82 mmHg INDICATION Chest Pain RISK FACTORS Height: 67, Weight: 174 DIMENSIONS LVDd6.4 (3.8-5.7cm)LA (2D)5.0 (1.9-4.0cm)Aortic Root3.1 (2.0-3.7cm) LVDs5.8 (2.5-4.0cm)LA (MM) (1.9-4.0cm)Aortic Cusp Exc1.4 (1.5-2.0cm) EF (%) 20.0 (55-70%)Rt. Atrium5.5 (1.9-4.0cm)Asc. Aorta cm Mitral Valve MitralMitral Stenosis E wave1.15m/sMV Mean GR.mmHg A wavem/sMV Peak GR.48mmHg E/A ratio0.02D MVAcm2 Aortic Valve Aortic ValveAortic Stenosis V10.74m/Adry Mean GR.9mmHg V21.92m/Adry Peak GR.15mmHg LVOT Diameter2.1 (1.8-2.4cm)Doppler AVA1.33cm2 AI P 1/2 Bumi010.32ms Pulmonic Valve V20.68m/s Tricuspid Valve TR Velocity3.01m/s [id number] Conclusion ALL CARDIAC CHAMBERS ARE REMARKABLY DILATED AND HYPOKINETIC IT IS END STAGE DILATED CARDIOMYOPATHY CALCIFIED AORTIC LEAFLETS MODERATE DEGREE AORTIC REGURGITATION LV EF IS ONLY 20% SEVERE PULMONARY HYPERTENSION RVSP IS 55 MM OF HG AND IS VERY HIGH
[2025-05-01 06:53] LABS: Hematocrit 38.3 % (41.0-53.0); Hemoglobin 13.0 g/dL (13.5-17.5); Mean Corpuscular Hemoglobin 29.0 pg (28.0-32.0); Mean Corpuscular Volume 85.8 fL (80.0-100.0); Nucleated Red Blood Cells % 0.1 %
[2025-05-01 07:11] LABS: Alanine Aminotransferase 18 U/L (7-40); Albumin 4.1 g/dL (3.2-4.8); Alkaline Phosphatase 99 U/L (46-116); Anion Gap 11 (5-15); BUN/Creatinine Ratio 21.8 (10.0-20.0); Calcium 8.8 mg/dL (8.7-10.4); Carbon Dioxide 23 mmol/L (20-31); Chloride 105 mmol/L (98-107); Glucose 93 mg/dL (74-106); Magnesium 2.3 mg/dL (1.6-2.6); Potassium 4.4 mmol/L (3.5-5.1); Sodium 139 mmol/L (136-145); Total Protein 7.2 g/dL (5.7-8.2)
[2025-05-01 07:14] LABS: Bilirubin, Total 1.3 mg/dL (0.2-1.0); Blood Urea Nitrogen 24 mg/dL (9-23)
[2025-05-01] MEDS ORDERED: IOHEXOL 350 MG/ML 100ML IJ ONE (12:00)
--- NOTE | 2025-05-01 12:52 | DVH ---
EXAM DESCRIPTION: CT CT ANGIO CHEST CONTRAST CLINICAL HISTORY: elevate d-dimer r/o PE COMPARISON: CTACH on DOS: 11/11/21 TECHNIQUE:/ CT angiogram of the chest was performed. MPR and MIP images were generated. CTDI/ DLP = / Dose reduction technique with one or more of the following methods was performed: Automated exposure control, adjustment of the mA and/or kV according to patient size, use of iterative reconstruction [place]. FINDINGS: Lines / Tubes / Devices: None. Lymph nodes: No suspicious mediastinal, hilar, or axillary lymph nodes. Mediastinum: Moderate to severe cardiomegaly. No pericardial effusion. Normal caliber of the thoraci c aorta. Pulmonary artery: No pulmonary embolism. Normal caliber pulmonary artery. No straightening or bowing of the interventricular septum. Reflux of contrast into the IVC and hepatic veins. Lungs / Airways: No suspicious nodules. No consolidation. No pulmonary edema. The central airways are patent. Pleura: No pleural effusion. No pneumothorax. Soft tissues: Unremarkable. Bones: No suspicious osseous lesions. Upper abdomen: Status post cholycystectomy. IMPRESSION: 1. No evidence of pulmonary embolism. 2. Moderate to severe cardiomegaly with findings suggestive of elevated right heart pressures.
--- NOTE | 2025-05-01 15:44 | DVHPN2 ---
Progress Note Date Seen: May 01, 2025 Has the PT tested + for MRSA If YES, has PT been informed?: No Medical Necessity Reason Pt with a Central, PICC or Fol: No Subjective Patient reports: Feels better Objective vital signs Vital Sign Date Time Temp Pulse Resp B/P (MAP) Pulse Ox O2 Delivery O2 Flow Rate FiO2 05/01/25 13:55 90 18 100 05/01/25 13:49 Room Air 05/01/25 13:49 0 21 05/01/25 13:00 97.5 106/77 (87) 97.5 Total Intake and Output 04/30/25 04/30/25 05/01/25 15:00 23:00 07:00 Intake Total 800 ml 834 ml Output Total 1050 ml Balance -250 ml 834 ml medications Current Medications Medications Dose Ordered Sig/Mell Route Start Time Stop Time Status Last Admin Dose Admin Furosemide 40 mg DAILY IV 04/30/25 10:00 05/01/25 09:12 40 MG Albuterol 2.5 mg Q4HWA NEB 04/29/25 14:00 05/01/25 13:49 2.5 MG Ipratropium [place] 0.5 mg Q4HWA NEB 04/29/25 14:00 05/01/25 13:49 0.5 MG Aspirin 81 mg DAILY PO 04/30/25 10:00 05/01/25 09:11 81 MG Atorvastatin Calcium 40 mg HS PO 04/29/25 22:00 04/30/25 21:33 40 MG Morphine Sulfate 2 mg Q30MP PRN IV 04/29/25 13:15 Cancel Acetaminophen 650 mg Q6HP PRN PO 04/29/25 13:15 Nitroglycerin 0.4 mg Q5MINP PRN SL 04/29/25 13:15 Cancel Ondansetron HCl 4 mg Q4HP PRN IV 04/29/25 13:15 Nitroglycerin 0.4 mg Q5MINP PRN SL 04/29/25 13:15 Morphine Sulfate 2 mg Q30M PRN IV 04/29/25 13:15 Diagnostic Test (Pha) 1 strip ACHS 04/29/25 17:00 05/01/25 11:39 1 STRIP Insulin Human Regular ACHS SC 04/29/25 17:00 04/30/25 12:01 2 UNITS Dextrose 50 ml UD PRN IV 04/29/25 13:15 Heparin Sodium (Porcine) 5,000 units Q12HR SC 04/30/25 22:00 05/01/25 09:19 5,000 UNITS Examination General Appearance: Alert, Oriented X3, Cooperative, No acute distress HEENT: Atraumatic, PERRLA, EOMI, Mucous membr. moist/pink Respiratory: Clear to auscultation, Normal air movement Cardiovascular: Normal S1, Normal S2 Abdominal: Normal bowel sounds, Soft Extremities: Positive bilateral lower extremity edema. No cyanosis Skin: No significant lesion Neuro: Normal gait, Normal speech, Strength at 5/5 X4 ext, Normal tone, Sensation intact Psych/Mental Status: Mental status NL, Mood NL laboratory and microbiology Laboratory Tests 05/01/25 06:07 Test 05/01/25 06:07 Range/Units Serum Glucose 93 74-106 mg/dL Labs and/or images reviewed: Labs reviewed by me, Image(s) reviewed by me Problem List/Assessment/Plan Problem List/Assessment/Plan Acute on chronic CHF exacerbation Hyperkalemia Marijuana use History of C4-5 fusion History of diabetes History of hypertension History of kidney stones History of [place] History of cholecystectomy Plan Admit To tele Aspirin + statin Diurese 40kg iv Strict I&Os Goal K >4, Mg >2 Daily weight d-dimer elevated, CTA chest ruled out PE Duo nebs Echo show EF 20%, severe PTH Card consult ISS and Accu-Cheks Diet Home medications reconciled DVT prophylaxis-SCDs PUD prophylaxis-PPIs Discussed plan of care with patient and nurse Plan discussed with: Patient My Orders My Orders Orders - ANDREW FISHER MD Procedure Category Date Status Time Ct Angio Chest CT 05/01/25 Resulted Contrast 10:32 Date of Service: May 01, 2025 Billing Provider: ANDREW FISHER MD Common Visit Codes: 75710-EGD/OBS SAME DATE (HIGH) ANDREW FISHER MD May 01, 2025 15:44
[2025-05-01] MEDS: FUROSEMIDE 40 MG/4 ML VIAL IV SCH (17:38)
[2025-05-01] MEDS: CARVEDILOL 3.125 MG TAB PO SCH (21:59)
[2025-05-02] VITALS (16 sets, daily range): BP systolic 87–158; BP diastolic 67–90; PULSE 69–103; RESP 14–20; TEMP 36.7; O2SAT 93–100
[2025-05-02 07:12] LABS: Hematocrit 39.5 % (41.0-53.0); Hemoglobin 13.6 g/dL (13.5-17.5); Mean Corpuscular Hemoglobin 29.4 pg (28.0-32.0); Mean Corpuscular Volume 85.6 fL (80.0-100.0); Nucleated Red Blood Cells % 0.0 %
[2025-05-02 07:30] LABS: Alanine Aminotransferase 20 U/L (7-40); Alkaline Phosphatase 100 U/L (46-116); Anion Gap 11 (5-15); BUN/Creatinine Ratio 17.2 (10.0-20.0); Blood Urea Nitrogen 20 mg/dL (9-23); Calcium 9.2 mg/dL (8.7-10.4); Carbon Dioxide 25 mmol/L (20-31); Chloride 101 mmol/L (98-107); Glucose 93 mg/dL (74-106); Magnesium 2.2 mg/dL (1.6-2.6); Potassium 4.3 mmol/L (3.5-5.1); Sodium 137 mmol/L (136-145); Total Protein 7.4 g/dL (5.7-8.2)
[2025-05-02 07:31] LABS: Albumin 4.3 g/dL (3.2-4.8)
[2025-05-02 07:36] LABS: Bilirubin, Total 1.3 mg/dL (0.2-1.0)
[2025-05-02] MEDS: LISINOPRIL 5 MG TAB PO SCH (09:21)
--- NOTE | 2025-05-02 12:01 | DVHINCON2 ---
Date Seen: May 02, 2025 Referring Physician MD Mal Reason for Consultation CHF exacerbation History of Present Illness This is a 44-year-old man who presented to the emergency room with a chief complaint of shortness of breath for two weeks. The patient complains of progressive shortness of breath associated with bilateral lower extremity edema, PND, and orthopnea and prompting him to seek further medical attention. The patient has been diagnosed with congestive heart failure in the past but somehow has a failed to follow up in the outpatient setting with the primary inserting operator or continue guideline directed medical therapy as recommended in the past. Denies chest pain, palpitations, diaphoresis, or syncopal events. 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 Past Medical History Past medical history reviewed. No other significant than mentioned above. Past Surgical History Cholecystectomy C4-C5 fusion Family History: FH: NE (myocardial infarction) G8 MOTHER Hypertension G8 MOTHER Family History Family history reviewed. Social History Denies the use of alcohol, or tobacco use. Admits to cannabinoid use. Quit methamphetamines a year ago. Allergies: Coded Allergies: NO KNOWN ALLERGIES (Unverified , 11/11/21) Home Meds Active Scripts Furosemide (Lasix) 40 Mg Tab, 40 MG PO DAILY for 30 Days, #30 TAB Prov:JOYCE BLANDON MD 11/14/21 Reported Medications Cephalexin (KEFLEX CAPSULE) 250 Mg Cp, 500 MG PO QID for UTI for 7 Days 11/11/21 Home Meds Denies any active prescribed home medications. Current Medications Current Medications Medications (Trade) Dose Ordered Sig/Mell Route PRN Reason Start Time Stop Time Status Last Admin Lisinopril (Zestril Tablet) 5 mg DAILY PO 05/02/25 10:00 05/02/25 09:21 Furosemide (Lasix Injection) 20 mg DAILY IV 05/01/25 16:00 05/02/25 09:20 Carvedilol (Coreg Tablet) 3.125 mg Q12HR PO 05/01/25 22:00 05/02/25 09:22 Review of Systems Constitutional: No symptom reported Ears, Nose, & Throat: No symptom reported Eyes: No symptom reported Neurological: No symptoms reported Pulmonary/Respiratory: SOB, PND, orthopnea Cardiovascular: BLE edema Gastrointestinal: No symptom reported Genitourinary: No symptom reported Musculoskeletal: No symptom reported Skin: No symptom reported Psychiatric: No symptom reported Endocrine: No symptom reported Hemotologic/Lymphatic: No symptom reported Vital Signs Vital Signs Date Time Temp Pulse Resp B/P (MAP) Pulse Ox O2 Delivery O2 Flow Rate FiO2 05/02/25 10:32 96 14 100 05/02/25 10:00 Room Air* 0 21 05/02/25 09:22 119/90 05/02/25 09:00 98.0 98.0 Physical Exam General Appearance: Cooperative. Well developed. Well nourished. In no acute distress Head Exam: Normal inspection Neck Exam: Normal inspection. Non-tender. Normal alignment Pulmonary/Respiratory: Chest non-tender. Crackles to bilateral breath sounds Cardiovascular/Chest: Regular rate and rhythm. S1, S2. Sinus tachycardia suggestive of LVH. No murmurs. No JVD. Peripheral Pulses: 2+ Radial (R). 2+ Radial (L). 2+ Pedal (R). 2+ Pedal (L) Abdominal Exam: Normal bowel sounds. Soft. Ankle Exam: Negative ankle edema Lower extremities: Negative lower extremity edema Neuro/Mental Status: A&O x4. Coherent Thoughts/Psych: Normal thought pattern. Appropriate mood and affect. Good judgement and insight Appearance: In no acute distress Skin Exam: Normal inspection. Normal color. Warm. Dry Labs/Diagnostic Data Labs Test 05/02/25 06:23 05/02/25 06:09 04/30/25 05:47 04/29/25 14:49 Range/Units POC Glucose 109 H 70-106 mg/dl White Blood Count 8.7 4.4-10.8 10^3/uL Red Blood Count 4.62 4.5-5.90 10^6/uL Hemoglobin 13.6 13.5-17.5 g/dL Hematocrit 39.5 L 41.0-53.0 % Mean Corpuscular Volume 85.6 80.0-100.0 fL Mean Corpuscular Hemoglobin 29.4 28.0-32.0 pg Mean Corpuscular Hemoglobin Concent 34.3 32.0-36.0 g/dL Red Cell Distribution Width 15.1 H 11.8-14.3 % Platelet Count 270 140-450 10^3/uL Mean Platelet Volume 8.9 6.9-10.8 fL Neutrophils (%) (Auto) 72.4 37.0-80.0 % Lymphocytes (%) (Auto) 19.1 10.0-50.0 % Monocytes (%) (Auto) 3.1 0.0-12.0 % Eosinophils (%) (Auto) 4.8 0.0-7.0 % Basophils (%) (Auto) 0.6 0.0-2.0 % Neutrophils # (Auto) 6.3 1.6-8.6 10 ^3/uL Lymphocytes # (Auto) 1.7 0.4-5.4 10 ^3/uL Monocytes # (Auto) 0.3 0-1.3 10 ^3/uL Eosinophils # (Auto) 0.4 0-0.8 10 ^3/uL Basophils # (Auto) 0.1 0-0.2 10 ^3/uL Nucleated Red Blood Cells 0.0 % Sodium Level 137 136-145 mmol/L Potassium Level 4.3 3.5-5.1 mmol/L Chloride Level 101 98-107 mmol/L Carbon Dioxide Level 25 20-31 mmol/L Anion Gap 11 5-15 Blood Urea Nitrogen 20 9-23 mg/dL Creatinine 1.16 0.700-1.30 mg/dL Glomerular Filtration Rate Calc 79 >90 mL/min BUN/Creatinine Ratio 17.2 10.0-20.0 Serum Glucose 93 74-106 mg/dL Calcium Level 9.2 8.7-10.4 mg/dL Magnesium Level 2.2 1.6-2.6 mg/dL Total Bilirubin 1.3 H 0.2-1.0 mg/dL Aspartate Amino Transferase (AST) 30 13-40 U/L Alanine Aminotransferase (ALT) 20 7-40 U/L Alkaline Phosphatase 100 46-116 U/L Total Protein 7.4 5.7-8.2 g/dL Albumin 4.3 3.2-4.8 g/dL Troponin I High Sensitivity 44 </=54 ng/L Triglycerides Level 108 < 150 mg/dL Cholesterol Level 151 < 200 mg/dL LDL Cholesterol 105 H < 100 mg/dL HDL Cholesterol 43 40-59 mg/dL D-Dimer, Quantitative 0.87 H 0.0-0.49 mg/L FEU Test 04/29/25 14:00 04/29/25 09:13 Range/Units Urine Color Yellow Yellow Urine Clarity Clear Clear Urine pH 6.5 5.0-9.0 Urine Specific [place] 1.026 1.001-1.035 Urine Protein Trace H Negative Urine Ketones Negative Negative Urine Blood Negative Negative /uL Urine Nitrite Negative Negative Urine Bilirubin Negative Negative Urine Urobilinogen Normal Negative mg/dL Urine Leukocyte Esterase Negative Negative /uL Urine RBC 2 0 - 3 /hpf Urine Microscopic WBC 4 H 0-3 /HPF Urine Squamous Epithelial Cells Few <5 /hpf Urine Bacteria None seen None Seen /hpf Urine Glucose Normal Normal mg/dL Urine Opiates Screen Negative NEGATIVE Urine Fentanyl Screen Negative NEGATIVE Urine Barbiturates Screen Negative NEGATIVE Urine Phencyclidine Screen Negative NEGATIVE Urine Amphetamines Screen Negative NEGATIVE Urine Benzodiazepines Screen Negative NEGATIVE Urine Cocaine Screen Negative NEGATIVE Urine Cannabinoids Screen Positive NEGATIVE Hemoglobin A1c 5.8 H <5.7 % A1C B-Type Natriuretic Peptide 953.96 0-100 pg/mL Assessment Acute on chronic decompensated HFrEF, NYHA Class III Drug-induced/end-stage dilated cardiomyopathy Pulmonary hypertension, likely group 1 Prediabetes Borderline dyslipidemia Cannabinoid use Medical noncompliance Plan/Recommendation (Dr. Maurer) * Transthoracic echocardiogram revealed LVEF at 20% with severe pulmonary hypertension, end-stage dilated cardiomyopathy, and moderate degree of aortic regurgitation. * Twelve lead electrocardiograms x3 revealed a sinus tachycardia rhythm suggestive of left ventricular hypertrophy. * Serial troponins are negative. Plan: Initiate full GDMT for HFrEF and titrate as tolerated. Continue preload and afterload reduction, strict I&Os, daily weight, fluid restrictions. Continue DVT/VTE prophylaxis. The patient reports he quit methamphetamines approximately a year ago he can potentially be evaluated in the outpatient [facility] for a heart transplant. Strongly counseled on routine follow-ups with Cardiology and compliance with medical therapy as outpatient. Kindly re-consult in the need of further recommendations. Thank you for allowing us to participate in this patient's care. Please call if you have any questions or concerns. This medical document was created using an electronic medical record system with voice recognition software and computerized dictation system. Although this document has been carefully reviewed, there might still be some phonetic and typographical errors. Occasional wrong-word or ``sound-alike substitutions may have occurred due to the inherent limitations of voice recognition software. These areas are purely typographical due to imperfections of the software programs and do not reflect any compromise in the patient's medical care. Please read the chart carefully and recognize, using context, where these substitutions have occurred. Plan discussed with: Patient, Other NYHA Physical activity limitations: Class3(Marked) ordinary (activity causes symtoms) Date of Service: May 02, 2025 Billing Provider: TRACEY RAMÍREZ Cardiology Common Codes: [id number] INP/OBS CARE (High) TRACEY RAMÍREZ May 02, 2025 12:01
--- NOTE | 2025-05-02 13:08 | DVHDS2 ---
Discharge Summary Date of Admission Apr 29, 2025 at 13:02 Date of Discharge: May 02, 2025 Labs/Diagnostic Data: Laboratory Results Test 05/02/25 11:40 05/02/25 06:09 04/30/25 05:47 04/29/25 14:49 POC Glucose 89 mg/dl (70-106) White Blood Count 8.7 10^3/uL (4.4-10.8) Red Blood Count 4.62 10^6/uL (4.5-5.90) Hemoglobin 13.6 g/dL (13.5-17.5) Hematocrit 39.5 % (41.0-53.0) Mean Corpuscular Volume 85.6 fL (80.0-100.0) Mean Corpuscular Hemoglobin 29.4 pg (28.0-32.0) Mean Corpuscular Hemoglobin Concent 34.3 g/dL (32.0-36.0) Red Cell Distribution Width 15.1 % (11.8-14.3) Platelet Count 270 10^3/uL (140-450) Mean Platelet Volume 8.9 fL (6.9-10.8) Neutrophils (%) (Auto) 72.4 % (37.0-80.0) Lymphocytes (%) (Auto) 19.1 % (10.0-50.0) Monocytes (%) (Auto) 3.1 % (0.0-12.0) Eosinophils (%) (Auto) 4.8 % (0.0-7.0) Basophils (%) (Auto) 0.6 % (0.0-2.0) Neutrophils # (Auto) 6.3 10 ^3/uL (1.6-8.6) Lymphocytes # (Auto) 1.7 10 ^3/uL (0.4-5.4) Monocytes # (Auto) 0.3 10 ^3/uL (0-1.3) Eosinophils # (Auto) 0.4 10 ^3/uL (0-0.8) Basophils # (Auto) 0.1 10 ^3/uL (0-0.2) Nucleated Red Blood Cells 0.0 % Sodium Level 137 mmol/L (136-145) Potassium Level 4.3 mmol/L (3.5-5.1) Chloride Level 101 mmol/L (98-107) Carbon Dioxide Level 25 mmol/L (20-31) Anion Gap 11 (5-15) Blood Urea Nitrogen 20 mg/dL (9-23) Creatinine 1.16 mg/dL (0.700-1.30) Glomerular Filtration Rate Calc 79 mL/min (>90) BUN/Creatinine Ratio 17.2 (10.0-20.0) Serum Glucose 93 mg/dL (74-106) Calcium Level 9.2 mg/dL (8.7-10.4) Magnesium Level 2.2 mg/dL (1.6-2.6) Total Bilirubin 1.3 mg/dL (0.2-1.0) Aspartate Amino Transferase (AST) 30 U/L (13-40) Alanine Aminotransferase (ALT) 20 U/L (7-40) Alkaline Phosphatase 100 U/L (46-116) Total Protein 7.4 g/dL (5.7-8.2) Albumin 4.3 g/dL (3.2-4.8) Troponin I High Sensitivity 44 ng/L (</=54) Triglycerides Level 108 mg/dL (< 150) Cholesterol Level 151 mg/dL (< 200) LDL Cholesterol 105 mg/dL (< 100) HDL Cholesterol 43 mg/dL (40-59) D-Dimer, Quantitative 0.87 mg/L FEU (0.0-0.49) Test 04/29/25 14:00 04/29/25 09:13 Urine Color Yellow (Yellow) Urine Clarity Clear (Clear) Urine pH 6.5 (5.0-9.0) Urine Specific [place] 1.026 (1.001-1.035) Urine Protein Trace (Negative) Urine Ketones Negative (Negative) Urine Blood Negative /uL (Negative) Urine Nitrite Negative (Negative) Urine Bilirubin Negative (Negative) Urine Urobilinogen Normal mg/dL (Negative) Urine Leukocyte Esterase Negative /uL (Negative) Urine RBC 2 /hpf (0 - 3) Urine Microscopic WBC 4 /HPF (0-3) Urine Squamous Epithelial Cells Few /hpf (<5) Urine Bacteria None seen /hpf (None Seen) Urine Glucose Normal mg/dL (Normal) Urine Opiates Screen Negative (NEGATIVE) Urine Fentanyl Screen Negative (NEGATIVE) Urine Barbiturates Screen Negative (NEGATIVE) Urine Phencyclidine Screen Negative (NEGATIVE) Urine Amphetamines Screen Negative (NEGATIVE) Urine Benzodiazepines Screen Negative (NEGATIVE) Urine Cocaine Screen Negative (NEGATIVE) Urine Cannabinoids Screen Positive (NEGATIVE) Hemoglobin A1c 5.8 % A1C (<5.7) B-Type Natriuretic Peptide 953.96 pg/mL (0-100) Other Laboratory Tests 05/02/25 06:09 Brief Hx & Hospital Course: Patient is a 44 years old male with a history of heart failure with reduced ejection fraction, trochlea and knees LR cardiomyopathy, pulmonary hypertension prediabetes cannabinoids pertinent ED with shortness of breaths and lower extremity edema. Patient is admitted for CHF with reduced-elevation. Patient's start on IV Lasix the patient. Patient initiated GDMT for heart failure. Patient is euvolemic, lower extremity edema resolved. Shortness of breathe years old. When patient is a follow up with me in the for heart transplant. Follow up with the PCP and Cardiology in one week for inpatient discharge visit Condition at Discharge: Stable Final Diagnosis/Problems List Acute on chronic decompensated HFrEF, NYHA Class III Drug-induced/end-stage dilated cardiomyopathy Pulmonary hypertension, likely group 1 Prediabetes Borderline dyslipidemia Cannabinoid use Medical noncompliance Discharge Disposition: Home Discharge Instruct/Medications Diet: Cardiac 2g Na,low cholest Activity: No Restrictions, As Tolerated Follow Up/Referral: Follow with the PCP in one week for inpatient discharge visit and heart transplant team referral elevated in the Follow up with Cardiology in one week patient discharge Scheduled Cephalexin (Keflex Capsule), 500 MG PO QID, (Reported) Furosemide (Lasix), 40 MG PO DAILY 55 Discharge Statement: "Patient was advised to return to the ER or call 911 if any headaches, dizziness, shortness of breath, chest pain, abdominal pain, bleeding, fevers, or worsening of medical condition. Patient was counseled about treatment plan, medications, possible side effects, patientverbalized understanding. All questions were answered to the best of my ability. This discharge took greater then 30 minutes in planning, reviewing documentation, counseling the patient, and discussing with other team members." ASSESSMENT ASSESSMENT Assessment Date of Service: May 02, 2025 Billing Provider: ANDREW FISHER MD Common Visit Codes: [id number]/OBS DISCH DAY >30min ANDREW FISHER MD May 02, 2025 13:08
[2025-05-02] MEDS ORDERED: LISI-275 PO (14:19)
[2025-05-02] MEDS ORDERED: CARV-214 PO (14:19)
[2025-05-02] MEDS ORDERED: FURO1TAB31 PO (14:19)
[2025-05-02] MEDS ORDERED: ASPI-325 PO (14:19)
[2025-05-02] MEDS ORDERED: SPIR25TA PO (14:19)
[2025-05-02] MEDS ORDERED: EMPA1TAB PO (14:19)
[2025-05-02] MEDS ORDERED: ATOR20TA50 PO (14:19)
[2025-05-02] MEDS: FUROSEMIDE 20 MG/2 ML VIAL IV ONE (14:24)
[2025-05-02] MEDS: EMPAGLIFLOZIN 10 MG TAB PO ONE (14:24)
[2025-05-02] MEDS: SPIRONOLACTONE 25 MG TAB PO ONE (14:24)
[2025-05-02] MEDS: FUROSEMIDE 20 MG/2 ML VIAL IV SCH (18:00)
--- NOTE | 2025-05-02 22:36 | DVHINCON2 ---
Date Seen: May 02, 2025 Referring Physician MD Mal Reason for Consultation CHF exacerbation History of Present Illness This is a 44-year-old male with a past medical history of congestive heart failure with HFrEF, drug-induced cardiomyopathy with a history of longstanding methamphetamine use, prediabetes, dyslipidemia, cannabinoid use, and history of methamphetamine use for approximately 24 years which he quit a year ago who presented to the emergency room with a complaint of shortness of breath for two weeks. The patient complains of progressive shortness of breath associated with bilateral lower extremity edema, PND, and orthopnea and prompting him to seek further medical attention. The patient has been diagnosed with congestive heart failure in the past but somehow has a failed to follow up in the outpatient setting with the primary pathology laboratory director or continue guideline directed medical therapy as recommended in the past. Denies chest pain, palpitations, diaphoresis, or syncopal events. Patient was admitted to the hospital. I am asked to consult on this patient. Past Medical History Past medical history reviewed. No other significant than mentioned above. Past Surgical History Cholecystectomy C4-C5 fusion Family History: FH: CO (myocardial infarction) G8 MOTHER Hypertension G8 MOTHER Allergies: Coded Allergies: NO KNOWN ALLERGIES (Unverified , 11/11/21) Home Meds Active Scripts Spironolactone (Aldactone) 25 Mg Tab, 12.5 MG PO DAILY for 30 Days, #15 TAB Prov:ANDREW FISHER MD 05/02/25 Lisinopril (Lisinopril) 5 Mg Tab, 5 MG PO DAILY for 30 Days, #30 TAB Prov:ANDREW FISHER MD 05/02/25 Empagliflozin (Jardiance) 10 Mg Tab, 10 MG PO DAILY for 30 Days, #30 TAB Prov:ANDREW FISHER MD 05/02/25 Carvedilol (COREG) 3.125 Mg Tab, 3.125 MG PO Q12HR for 30 Days, #60 TAB Prov:ANDREW FISHER MD 05/02/25 Atorvastatin Calcium (ATORVASTATIN CALCIUM) 20 Mg Tab, 40 MG PO HS for 30 Days, #60 TAB Prov:ANDREW FISHER MD 05/02/25 Aspirin (Aspirin Low Dose) 81 Mg Tab, 81 MG PO DAILY for 30 Days, #30 TAB Prov:ANDREW FISHER MD 05/02/25 Furosemide (Lasix) 40 Mg Tab, 40 MG PO DAILY for 30 Days, #30 TAB Prov:ANDREW FISHER MD 05/02/25 Discontinued Reported Medications Cephalexin (KEFLEX CAPSULE) 250 Mg Cp, 500 MG PO QID for UTI for 7 Days 11/11/21 Current Medications Current Medications Medications (Trade) Dose Ordered Sig/Mell Route PRN Reason Start Time Stop Time Status Last Admin Lisinopril (Zestril Tablet) 5 mg DAILY PO 05/02/25 10:00 05/02/25 09:21 Furosemide (Lasix Injection) 20 mg DAILY IV 05/01/25 16:00 05/02/25 11:53 DC 05/02/25 09:20 Carvedilol (Coreg Tablet) 3.125 mg Q12HR PO 05/01/25 22:00 05/02/25 09:22 Furosemide (Lasix Injection) 20 mg BIDD IV 05/02/25 18:00 Empaglifozin (Jardiance) 10 mg DAILY PO 05/03/25 10:00 Spironolactone (Aldactone) 12.5 mg DAILY PO 05/03/25 10:00 Review of Systems Constitutional: No symptom reported Ears, Nose, & Throat: No symptom reported Eyes: No symptom reported Neurological: No symptoms reported Pulmonary/Respiratory: SOB, PND, orthopnea Cardiovascular: BLE edema Gastrointestinal: No symptom reported Genitourinary: No symptom reported Musculoskeletal: No symptom reported Skin: No symptom reported Psychiatric: No symptom reported Endocrine: No symptom reported Hemotologic/Lymphatic: No symptom reported Vital Signs Vital Signs Date Time Temp Pulse Resp B/P (MAP) Pulse Ox O2 Delivery O2 Flow Rate FiO2 05/02/25 14:28 81 14 96 05/02/25 14:24 87/67 05/02/25 10:00 Room Air* 0 21 05/02/25 09:00 98.0 98.0 Physical Exam GENERAL: Alert and oriented x 3. No acute distress. EYES: PERRL, EOMI. Anicteric. HENT: Moist mucous membranes. LUNGS: Clear to auscultation bilaterally. CARDIOVASCULAR: Regular rate and rhythm. ABDOMEN: Soft, nontender and nondistended. EXTREMITIES: No edema. NEUROLOGIC: No focal neurological deficits. SKIN: Warm, dry. Labs/Diagnostic Data Labs Test 05/02/25 11:40 05/02/25 06:09 04/30/25 05:47 04/29/25 14:49 Range/Units POC Glucose 89 70-106 mg/dl White Blood Count 8.7 4.4-10.8 10^3/uL Red Blood Count 4.62 4.5-5.90 10^6/uL Hemoglobin 13.6 13.5-17.5 g/dL Hematocrit 39.5 L 41.0-53.0 % Mean Corpuscular Volume 85.6 80.0-100.0 fL Mean Corpuscular Hemoglobin 29.4 28.0-32.0 pg Mean Corpuscular Hemoglobin Concent 34.3 32.0-36.0 g/dL Red Cell Distribution Width 15.1 H 11.8-14.3 % Platelet Count 270 140-450 10^3/uL Mean Platelet Volume 8.9 6.9-10.8 fL Neutrophils (%) (Auto) 72.4 37.0-80.0 % Lymphocytes (%) (Auto) 19.1 10.0-50.0 % Monocytes (%) (Auto) 3.1 0.0-12.0 % Eosinophils (%) (Auto) 4.8 0.0-7.0 % Basophils (%) (Auto) 0.6 0.0-2.0 % Neutrophils # (Auto) 6.3 1.6-8.6 10 ^3/uL Lymphocytes # (Auto) 1.7 0.4-5.4 10 ^3/uL Monocytes # (Auto) 0.3 0-1.3 10 ^3/uL Eosinophils # (Auto) 0.4 0-0.8 10 ^3/uL Basophils # (Auto) 0.1 0-0.2 10 ^3/uL Nucleated Red Blood Cells 0.0 % Sodium Level 137 136-145 mmol/L Potassium Level 4.3 3.5-5.1 mmol/L Chloride Level 101 98-107 mmol/L Carbon Dioxide Level 25 20-31 mmol/L Anion Gap 11 5-15 Blood Urea Nitrogen 20 9-23 mg/dL Creatinine 1.16 0.700-1.30 mg/dL Glomerular Filtration Rate Calc 79 >90 mL/min BUN/Creatinine Ratio 17.2 10.0-20.0 Serum Glucose 93 74-106 mg/dL Calcium Level 9.2 8.7-10.4 mg/dL Magnesium Level 2.2 1.6-2.6 mg/dL Total Bilirubin 1.3 H 0.2-1.0 mg/dL Aspartate Amino Transferase (AST) 30 13-40 U/L Alanine Aminotransferase (ALT) 20 7-40 U/L Alkaline Phosphatase 100 46-116 U/L Total Protein 7.4 5.7-8.2 g/dL Albumin 4.3 3.2-4.8 g/dL Troponin I High Sensitivity 44 </=54 ng/L Triglycerides Level 108 < 150 mg/dL Cholesterol Level 151 < 200 mg/dL LDL Cholesterol 105 H < 100 mg/dL HDL Cholesterol 43 40-59 mg/dL D-Dimer, Quantitative 0.87 H 0.0-0.49 mg/L FEU Test 04/29/25 14:00 04/29/25 09:13 Range/Units Urine Color Yellow Yellow Urine Clarity Clear Clear Urine pH 6.5 5.0-9.0 Urine Specific [place] 1.026 1.001-1.035 Urine Protein Trace H Negative Urine Ketones Negative Negative Urine Blood Negative Negative /uL Urine Nitrite Negative Negative Urine Bilirubin Negative Negative Urine Urobilinogen Normal Negative mg/dL Urine Leukocyte Esterase Negative Negative /uL Urine RBC 2 0 - 3 /hpf Urine Microscopic WBC 4 H 0-3 /HPF Urine Squamous Epithelial Cells Few <5 /hpf Urine Bacteria None seen None Seen /hpf Urine Glucose Normal Normal mg/dL Urine Opiates Screen Negative NEGATIVE Urine Fentanyl Screen Negative NEGATIVE Urine Barbiturates Screen Negative NEGATIVE Urine Phencyclidine Screen Negative NEGATIVE Urine Amphetamines Screen Negative NEGATIVE Urine Benzodiazepines Screen Negative NEGATIVE Urine Cocaine Screen Negative NEGATIVE Urine Cannabinoids Screen Positive NEGATIVE Hemoglobin A1c 5.8 H <5.7 % A1C B-Type Natriuretic Peptide 953.96 0-100 pg/mL Assessment Acute on chronic decompensated HFrEF, NYHA Class III. Drug-induced/end-stage dilated cardiomyopathy. Pulmonary hypertension, likely group 1. Prediabetes. Borderline dyslipidemia. Cannabinoid use. Medical noncompliance. Plan/Recommendation I agree with your ongoing assessment and care of plan. Patient has been seen by Josefa Ruffin NP on my behalf, her and I discussed the plan with the patient. Transthoracic echocardiogram revealed LVEF at 20% with severe pulmonary hypertension, end-stage dilated cardiomyopathy, and moderate degree of aortic regurgitation. Twelve lead electrocardiograms x3 revealed a sinus tachycardia rhythm suggestive of left ventricular hypertrophy. Serial troponins are negative. Initiate full GDMT for HFrEF and titrate as tolerated. Continue preload and afterload reduction, strict I&Os, daily weight, fluid restrictions. Continue DVT/VTE prophylaxis. The patient reports he quit methamphetamines approximately a year ago he can potentially be evaluated in the outpatient setting for a heart transplant. Strongly counseled on routine follow-ups with Cardiology and compliance with medical therapy as outpatient. Additional plan as per the hospital course. Plan discussed with: Patient NYHA Physical activity limitations: Class3(Marked) ordinary Date of Service: May 02, 2025 Billing Provider: LONNIE CANAS MD Cardiology Common Codes: [id number] INP/OBS CARE (High) Cardiology Consultation Codes: [id number] CONSULT <45MIN LONNIE CANAS MD May 02, 2025 15:03
--- NOTE | 2025-05-03 07:35 | ECG ---
[facility] Test Date: 2025-05-01 Test Time: 22:31:34 Pat Name: IVAN MONTOYA Department: Room: 0292T B Gender: M Skin Grader: at : 1980 Requested By: ANDREW FISHER Order Number: [id number] Reading MD: Measurements Intervals [place] Rate: 109 P: 62 ND: 165 QRS: 96 QRSD: 104 T: -44 QT: 347 QTc: 468 Interpretive Statements Sinus tachycardia Left atrial enlargement Borderline right axis deviation Left ventricular hypertrophy Nonspecific T abnormalities, inferior leads Anterior ST elevation, probably due to LVH Please click the below link to view image of tracing.
[2025-05-03] MEDS ORDERED: EMPAGLIFLOZIN 10 MG TAB PO SCH (10:00)
[2025-05-03] MEDS ORDERED: SPIRONOLACTONE 25 MG TAB PO SCH (10:00)
== END 2025-05-02 18:32 | disposition home or self-care (01) | DRG 194 ==
LOC: ER 08:03 → OVERFLOW 13:02 → TELE-WESTW 15:15
PROVIDERS: ADMIT Internal Medicine; ATTEND Internal Medicine
DX: I11.0 Hypertensive heart disease with heart failure (principal); I27.21 Secondary pulmonary arterial hypertension; I42.0 Dilated cardiomyopathy; E87.5 Hyperkalemia; I50.23 Acute on chronic systolic (congestive) heart failure; E11.9 Type 2 diabetes mellitus without complications; F12.90 Cannabis use, unspecified, uncomplicated; E78.5 Hyperlipidemia, unspecified; I42.7 Cardiomyopathy due to drug and external agent; I35.1 Nonrheumatic aortic (valve) insufficiency; Z90.49 Acquired absence of other specified parts of digestive tract; I25.2 Old myocardial infarction; Z87.442 Personal history of urinary calculi; Z98.1 Arthrodesis status; Z82.49 Family history of ischemic heart disease and other diseases of the circulatory system; Z91.199 Patient's noncompliance with other medical treatment and regimen due to unspecified reason; Z79.82 Long term (current) use of aspirin
CPT/HCPCS: 36415; 71045; 71275; 80048; 80053; 80061; 80307; 81001; 82962; 83036; 83735; 83880; 84484; 85025; 85379; 93005; 93306; 94640; G0378; J1815